=== PATIENT | female | born 1940 | race Caucasian/White ===

== ENCOUNTER 2016-12-18 13:55 | Inpatient (IN) | payer MEDICARE ==
[~2016-12-18] VITALS: Ht 157.5 cm; Wt 94.0 kg
[~2016-12-18 13:55] MED LIST: AMLODIPINE10 MG PO; AUGMENTIN875TAB OR; BENAZEPRIL40 M1 OR; LASIX OR; LASIX20 MG PO; MEDDOSEPAK OR; PROAIR HFA IN; XANAX1 MG PO
[2016-12-18 15:22] LABS: HEMATOCRIT 33.9 % (37.0-47.0); HEMOGLOBIN 10.9 g/dl (12.0-16.0); IMMATURE GRANULOCYTES 0.3 % (0.0-1.0); MEAN CELL VOLUME 75.8 fL CALC (80.0-100.0); MEAN CORPUSCULAR HGB 24.4 pG CALC (26.0-32.0); MEAN CORPUSCULAR HGB CONC 32.2 g/L CALC (32.0-36.0); NEUT# 10.73 thou/uL (2.00-7.15); RED BLOOD COUNT 4.47 mill/uL (4.20-5.60)
[2016-12-18 15:34] LABS: ALBUMIN 3.9 g/dL (3.2-5.0); BILIRUBIN, TOTAL 0.3 mg/dL (0.0-1.4); CALCIUM 8.1 mg/dL (8.4-10.2); CREATININE 1.1 mg/dL (0.5-1.0); POTASSIUM 4.7 mmol/l (3.5-5.1); TOTAL PROTEIN 7.2 g/dL (6.3-8.2)
[2016-12-18 15:42] LABS: INFLUENZA A NONE DETECTED (NONE DETECT); INFLUENZA B NONE DETECTED (NONE DETECT)
[2016-12-18 15:46] LABS: INTERNATIONAL NORMALIZED RATIO 1.9 RATIO (0.7-1.3); PROTHROMBIN TIME 22.1 SECONDS (9.0-12.5)
[2016-12-18] MEDS ORDERED: NEURONTIN300 MG PO (17:47)
[2016-12-18] MEDS ORDERED: ATENOLOL25 MG PO (17:48)
[2016-12-18] MEDS ORDERED: CYCLOBENZAPR10 MG PO (17:49)
[2016-12-18] MEDS ORDERED: OXYCODONE HCL15 MG PO (17:51)
[2016-12-18] MEDS ORDERED: WARFARIN7.5 MG PO (17:51)
[2016-12-18] MEDS ORDERED: ZANAFLEX4 MG PO (17:52)
[2016-12-18] MEDS ORDERED: VITAMIN D50000 UN1 PO (17:52)
[2016-12-18 18:53] LABS: URINE BILIRUBIN - DIPSTICK NEGATIVE (NEGATIVE); URINE BLOOD DIPSTICK NEGATIVE (NEGATIVE); URINE CLARITY CLEAR; URINE COLOR YELLOW; URINE GLUCOSE - DIPSTICK NEGATIVE (NEGATIVE); URINE KETONE NEGATIVE (NEGATIVE); URINE LEUK ESTERASE NEGATIVE (NEGATIVE); URINE NITRITE - DIPSTICK NEGATIVE (Negative); URINE PROTEIN - DIPSTICK TRACE mg/dL (NEG-TRACE); URINE UROBILINOGEN - DIPSTICK 0.2 E.U./dL (0.2)
[2016-12-18 19:54] VITALS: BP 134/71
[2016-12-18 22:51] LABS: ANION GAP 16 (6-22 (CALC)); BUN 18 mg/dL (8-23); BUN/CREATININE RATIO 17 (12-20 (CALC)); CALCIUM 8.2 mg/dL (8.4-10.2); CARBON DIOXIDE 22 mmol/l (22-30); CHLORIDE 94 mmol/l (95-108); GFR 54 ML/MIN (>=60 (CALC)); GFR FOR AFR.AMER. > 60 ML/MIN (>=60 (CALC)); GLUCOSE 182 mg/dL (82-115); POTASSIUM 4.9 mmol/l (3.5-5.1); SODIUM 127 mmol/l (137-146)
[2016-12-18 23:33] VITALS: BP 109/51
[2016-12-19 04:50] VITALS: BP 129/61
[2016-12-19 06:15] LABS: HEMATOCRIT 32.3 % (37.0-47.0); HEMOGLOBIN 10.5 g/dl (12.0-16.0); IMMATURE GRANULOCYTES 0.3 % (0.0-1.0); MEAN CELL VOLUME 74.3 fL CALC (80.0-100.0); MEAN CORPUSCULAR HGB 24.1 pG CALC (26.0-32.0); MEAN CORPUSCULAR HGB CONC 32.5 g/L CALC (32.0-36.0); NEUT# 7.96 thou/uL (2.00-7.15); RED BLOOD COUNT 4.35 mill/uL (4.20-5.60); RED CELL DISTRI WIDTH 15.9 % (11.5-15.5)
[2016-12-19 06:30] LABS: ANION GAP 15 (6-22 (CALC)); BUN 18 mg/dL (8-23); BUN/CREATININE RATIO 19 (12-20 (CALC)); CALCIUM 8.5 mg/dL (8.4-10.2); CARBON DIOXIDE 22 mmol/l (22-30); CHLORIDE 95 mmol/l (95-108); GFR 54 ML/MIN (>=60 (CALC)); GFR FOR AFR.AMER. > 60 ML/MIN (>=60 (CALC)); GLUCOSE 161 mg/dL (82-115); POTASSIUM 4.6 mmol/l (3.5-5.1); SODIUM 128 mmol/l (137-146)
[2016-12-19 09:01] VITALS: BP 131/54
[2016-12-19 12:12] VITALS: BP 130/59
[2016-12-19 15:08] VITALS: BP 136/70
[2016-12-19 19:50] VITALS: BP 149/60
[2016-12-20 00:30] VITALS: BP 138/67
[2016-12-20 05:00] VITALS: BP 144/67
[2016-12-20 06:50] LABS: HEMATOCRIT 33.6 % (37.0-47.0); HEMOGLOBIN 10.7 g/dl (12.0-16.0); MEAN CORPUSCULAR HGB 24.2 pG CALC (26.0-32.0); MEAN CORPUSCULAR HGB CONC 31.8 g/L CALC (32.0-36.0); NEUT# 9.95 thou/uL (2.00-7.15); RED BLOOD COUNT 4.42 mill/uL (4.20-5.60); RED CELL DISTRI WIDTH 16.5 % (11.5-15.5)
[2016-12-20 06:54] LABS: ANION GAP 15 (6-22 (CALC)); BUN 20 mg/dL (8-23); BUN/CREATININE RATIO 24 (12-20 (CALC)); CALCIUM 8.7 mg/dL (8.4-10.2); CARBON DIOXIDE 23 mmol/l (22-30); CHLORIDE 102 mmol/l (95-108); CREATININE 0.8 mg/dL (0.5-1.0); GFR > 60 ML/MIN (>=60 (CALC)); GFR FOR AFR.AMER. > 60 ML/MIN (>=60 (CALC)); GLUCOSE 159 mg/dL (82-115); SODIUM 134 mmol/l (137-146)
[2016-12-20 06:55] LABS: INTERNATIONAL NORMALIZED RATIO 2.5 RATIO (0.7-1.3); PROTHROMBIN TIME 28.8 SECONDS (9.0-12.5)
[2016-12-20 09:08] VITALS: BP 126/59
[2016-12-20 09:13] VITALS: BP 126/59
[2016-12-20] MEDS ORDERED: ZITHROMAX500 MG PO (09:46)
[2016-12-20] MEDS ORDERED: PROAIR HFA IN (09:46)
[2016-12-20] MEDS ORDERED: MEDDOSEPAK PO (09:46)
== END 2016-12-20 15:55 | disposition home or self-care (01) | DRG 641 ==
LOC: ENPENDDIS → ED 13:55 → ED-I 17:03 → ED 17:35 → MS2 17:36
PROVIDERS: Emergency Medicine; Internal Medicine; ADMIT Internal Medicine; ATTEND Internal Medicine
DX: E87.1 Hypo-osmolality and hyponatremia (principal); E86.0 Dehydration; I48.91 Unspecified atrial fibrillation; I10 Essential (primary) hypertension; F17.210 Nicotine dependence, cigarettes, uncomplicated; J40 Bronchitis, not specified as acute or chronic; R19.7 Diarrhea, unspecified; M47.819 Spondylosis without myelopathy or radiculopathy, site unspecified; Z79.01 Long term (current) use of anticoagulants; Z85.038 Personal history of other malignant neoplasm of large intestine; Z90.49 Acquired absence of other specified parts of digestive tract
CPT/HCPCS: G0378

== ENCOUNTER 2023-10-31 00:02 | Observation (INO) | payer MEDICARE ==
[2023-10-31] VITALS (28 sets, daily range): BP systolic 127–212; BP diastolic 58–141
[~2023-10-31] VITALS: Ht 160 cm; Wt 90.0 kg
[~2023-10-31 00:02] MED LIST changes: +ATENOLOL25 MG PO; +CYCLOBENZAPR10 MG PO; +MEDDOSEPAK PO; +NEURONTIN300 MG PO; +OXYCODONE HCL15 MG PO; +VITAMIN D50000 UN1 PO; +WARFARIN7.5 MG PO; +ZANAFLEX4 MG PO; +ZITHROMAX500 MG PO
[2023-10-31 00:51] LABS: ALBUMIN 4.1 g/dL (3.2-5.0); ALKALINE PHOSPHATASE 109 u/l (38-126); ANION GAP 11 (6-22 (CALC)); BILIRUBIN, TOTAL 0.4 mg/dL (0.02-1.3); BUN 26 mg/dL (8-23); BUN/CREATININE RATIO 19 (12-20 (CALC)); CARBON DIOXIDE 31 mmol/l (22-30); CHLORIDE 89 mmol/l (95-108); CREATININE 1.3 mg/dL (0.5-1.0); GFR FOR AFR.AMER. 48 ML/MIN (>=60 (CALC)); GFR OTHER RACES 39 ML/MIN (>=60 (CALC)); POTASSIUM 4.3 mmol/l (3.5-5.1); SGOT/AST 28 u/l (9-36); SODIUM 126 mmol/l (137-146); TOTAL PROTEIN 7.2 g/dL (6.3-8.2)
[2023-10-31 00:52] LABS: BASO% 0.7 % (0-3); EOS% 5.2 % (0-8); IMMATURE GRANULOCYTES 0.8 % (0.0-5.0); LYMPH% 17.1 % (15-41); MEAN CELL VOLUME 86.8 fL CALC (80.0-100.0); MEAN CORPUSCULAR HGB 27.4 pG CALC (26.0-32.0); MEAN CORPUSCULAR HGB CONC 31.6 g/dL CAL (32.0-36.0); MONO% 15.9 % (2-13); NEUT# 3.59 thou/uL (2.00-7.15); NEUT% 60.3 % (42-76); RED BLOOD COUNT 3.94 mill/uL (4.20-5.60); RED CELL DISTRI WIDTH 12.8 % (11.5-15.5)
[2023-10-31 00:53] LABS: HEMATOCRIT 34.2 % (37.0-47.0); HEMOGLOBIN 10.8 g/dl (12.0-16.0)
[2023-10-31 01:02] LABS: D-DIMER 2.03 mg/L (0.19-0.60)
[2023-10-31 01:13] LABS: PROTHROMBIN TIME 9.8 SECONDS (9.0-12.5)
[2023-10-31 05:32] LABS: URINE BILIRUBIN - DIPSTICK Negative (NEGATIVE); URINE BLOOD DIPSTICK Trace-intact (NEGATIVE); URINE GLUCOSE - DIPSTICK Negative (NEGATIVE); URINE KETONE Negative (NEGATIVE); URINE LEUK ESTERASE Negative (NEGATIVE); URINE NITRITE - DIPSTICK Negative (Negative); URINE PROTEIN - DIPSTICK 30 mg/dL (NEG-TRACE); URINE UROBILINOGEN - DIPSTICK 0.2 E.U./dL (0.2)
[2023-10-31 05:33] LABS: URINE COLOR Yellow
[2023-10-31] MEDS ORDERED: LISINOPRIL20 M1 PO (05:34)
[2023-10-31] MEDS ORDERED: HYDRALAZINE HYD25 MG PO (05:35)
[2023-10-31] MEDS ORDERED: COREG6.25 MG PO (05:36)
[2023-10-31] MEDS ORDERED: GABAPENTIN600 MG PO (05:37)
[2023-10-31] MEDS ORDERED: PLAVIX75 MG PO (05:37)
[2023-10-31 05:38] LABS: URINE BACTERIA RARE hpf; URINE EPITHELIAL CELLS RARE EPI/hpf (0-FEW); URINE WBC 0-2 WBC/hpf (0-5)
[2023-10-31] MEDS ORDERED: LEVOTHYROXIN25 MC1 PO (05:38)
[2023-10-31] MEDS ORDERED: PERCOCET 10/31 COMBO PO (05:39)
[2023-10-31] MEDS ORDERED: VITAMIN D2400 UNIT PO (05:43)
[2023-10-31] MEDS ORDERED: MYRBETRIQ25 MG PO (06:01)
[2023-10-31] MEDS ORDERED: ARICEPT PO (06:02)
[2023-10-31] MEDS ORDERED: TRAZODONE50 MG PO (06:03)
[2023-10-31] MEDS ORDERED: MOVANTIK25 MG PO (06:06)
[2023-10-31] MEDS ORDERED: XANAX0.5 MG PO (06:06)
[2023-10-31] MEDS ORDERED: FLEXERIL5 M1 PO (06:07)
[2023-10-31] MEDS ORDERED: [UNRECOGNIZED DRUG - OTHER] (06:09)
== END 2023-10-31 07:37 | disposition left against medical advice (07) ==
LOC: ED 00:02 → ED-I 05:50 → ED 06:18 → MS2 06:19
PROVIDERS: Family Medicine; ADMIT Student in an Organized Health Care Education/Training Program; ATTEND Student in an Organized Health Care Education/Training Program
DX: J44.1 Chronic obstructive pulmonary disease with (acute) exacerbation (principal); R09.02 Hypoxemia; R06.89 Other abnormalities of breathing; F17.200 Nicotine dependence, unspecified, uncomplicated; Z20.822 Contact with and (suspected) exposure to COVID-19
CPT/HCPCS: Q9967

== ENCOUNTER 2023-11-10 22:07 | Emergency (ER) | payer MEDICARE ==
[~2023-11-10] VITALS: Ht 160 cm; Wt 103.0 kg
[~2023-11-10 22:07] MED LIST changes: +ARICEPT PO; +COREG6.25 MG PO; +FLEXERIL5 M1 PO; +GABAPENTIN600 MG PO; +HYDRALAZINE HYD25 MG PO; +LEVOTHYROXIN25 MC1 PO; +LISINOPRIL20 M1 PO; +MOVANTIK25 MG PO; +MYRBETRIQ25 MG PO; +PERCOCET 10/31 COMBO PO; +PLAVIX75 MG PO; +TRAZODONE50 MG PO; +VITAMIN D2400 UNIT PO; +XANAX0.5 MG PO; +[UNRECOGNIZED DRUG - OTHER]
[2023-11-10 22:23] VITALS: BP 240/128
[2023-11-10 22:38] VITALS: BP 242/124
[2023-11-10 23:11] VITALS: BP 201/101
[2023-11-10 23:15] VITALS: BP 164/74
[2023-11-10 23:31] VITALS: BP 208/79
[2023-11-10 23:39] LABS: BASO% 0.3 % (0-3); EOS% 0.8 % (0-8); HEMOGLOBIN 11.7 g/dl (12.0-16.0); IMMATURE GRANULOCYTES 1.5 % (0.0-5.0); MEAN CELL VOLUME 88.1 fL CALC (80.0-100.0); MEAN CORPUSCULAR HGB 27.9 pG CALC (26.0-32.0); MEAN CORPUSCULAR HGB CONC 31.6 g/dL CAL (32.0-36.0); MONO% 6.9 % (2-13); NEUT# 12.82 thou/uL (2.00-7.15); NEUT% 72.5 % (42-76); RED BLOOD COUNT 4.2 mill/uL (4.20-5.60); RED CELL DISTRI WIDTH 13.4 % (11.5-15.5)
[2023-11-10 23:46] VITALS: BP 219/91
[2023-11-10 23:50] LABS: CREATININE 1.3 mg/dL (0.5-1.0); POTASSIUM 4.2 mmol/l (3.5-5.1)
[2023-11-10 23:56] LABS: INTERNATIONAL NORMALIZED RATIO 1.1 RATIO (0.7-1.3); PROTHROMBIN TIME 10.6 SECONDS (9.0-12.5)
[2023-11-11 00:01] VITALS: BP 226/96
[2023-11-11 00:15] VITALS: BP 232/99
[2023-11-11 00:25] VITALS: BP 212/89
[2023-11-11 00:53] VITALS: BP 187/78
== END 2023-11-11 00:53 | disposition home or self-care (01) ==
LOC: ED 22:07
PROVIDERS: Family Medicine
PROC: 2Y41X5Z Packing of Nasal Region using Packing Material (ICD-10-PCS; principal; 2023-11-10)
DX: R04.0 Epistaxis (principal); I10 Essential (primary) hypertension; F41.9 Anxiety disorder, unspecified; J44.9 Chronic obstructive pulmonary disease, unspecified; F17.200 Nicotine dependence, unspecified, uncomplicated